=== PATIENT | female | born 1980 | race Caucasian/White ===

== ENCOUNTER 2021-05-11 01:43 | Emergency (ER) | payer OTHER ==
[~2021-05-11] VITALS: Ht 160 cm; Wt 59.0 kg
--- NOTE | 2021-05-11 02:09 | NUR ---
Dr. Hernandez at bedside for MSE.
[2021-05-11] MEDS ORDERED: IBUPROFEN 600 MG TABLET ONE (02:27)
[2021-05-11] MEDS ORDERED: IBUPROFEN 600 MG TABLET PO ONE (02:30)
[2021-05-11 02:43] LABS: HEMATOCRIT 41.7 % (31.2-41.9); MEAN CORPUSCULAR VOLUME 91.3 fL (75.5-95.3); PLATELET COUNT (AUTO) 255 K/uL (179-408)
[2021-05-11 03:11] LABS: *MONOTEST NEGATIVE (NEGATIVE)
[2021-05-11] MEDS ORDERED: OXYC-128 PO ×2 (03:36→03:38)
[2021-05-11 03:47] VITALS: BP 111/63
--- NOTE | 2021-05-11 03:47 | NUR ---
Patient discharged to home in stable condition. Written and verbal after care instructions given. Patient verbalizes understanding of instructions. Stressed follow up or return to ER for worsening s/s. Patient out of ER with steady gait, no acute signs of distress, VSS, all belongings taken, provided patient with copies of lab results.
== END 2021-05-11 03:48 | disposition home or self-care (01) ==
LOC: ER 01:56
DX: J02.8 Acute pharyngitis due to other specified organisms (principal)
CPT/HCPCS: 36415; 85025; 86308; 86403; 87070; A4663